=== PATIENT | female | born 1945 | race Caucasian/White ===

== ENCOUNTER 2017-12-17 13:27 | Emergency (ER) | payer MEDICARE, OTHER ==
[~2017-12-17] VITALS: Ht 162.6 cm; Wt 70.0 kg
[2017-12-17 13:35] VITALS: BP 137/63; PULSE 90; RESP 16; TEMP 99.6; O2SAT 96
--- NOTE | 2017-12-17 14:00 | PD ---
HPI Chief Complaint: Fall Time Seen by Provider: 13:54 Travel History International Travel<30 days: No Contact w/Intl Traveler<30days: No Traveled to known affect area: No History of Present Illness HPI 72-year-old female presents to the emergency department for evaluation of right- sided facial swelling. Patient was in her horse barn yesterday when her horse bumped her and she fell to the ground striking the right side of her face. Patient reports pain, moderate in severity. No visual disturbances except for swollen eye and difficulty opening her eye. She did not lose consciousness. She is not on any anticoagulation therapy. She has no other symptoms to report. [facility] Past Medical History Medical History: Denies Significant Hx Social History Alcohol Use: No Tobacco Use: No Substance Use: No Allergies-Medications (Allergen,Severity, Reaction): Coded Allergies: Opioids - Morphine Analogues (Verified Adverse Reaction, Mild, NAUSEA/ VOMITING, 12/17/17) Reported Meds & Prescriptions Reported Meds & Active Scripts Active Ibuprofen 600 Mg Tab 600 Mg PO Q8H PRN Augmentin (Amoxicillin-Clavulanate) 875-125 Mg Tab 1 Tab PO BID 10 Days Reported Lexapro (Escitalopram Oxalate) 10 Mg Tab 10 Mg PO DAILY Review of Systems Except as stated in HPI: all other systems reviewed are Neg Physical Exam Narrative GENERAL: Well-nourished female patient, in no acute distress. SKIN: Focused skin assessment warm/dry. HEAD: Normocephalic. Right periorbital edema with associated ecchymosis. The lids are swollen shut. EYES: Pupils equal and round. No scleral icterus. Large subconjunctival hematoma of the right lateral eye. EOMI. No hyphema. ENT: No nasal bleeding or discharge. Mucous membranes pink and moist. NECK: Trachea midline. No JVD. CARDIOVASCULAR: Regular rate and rhythm. No murmur appreciated. RESPIRATORY: No accessory muscle use. Clear to auscultation. Breath sounds equal bilaterally. GASTROINTESTINAL: Abdomen soft, non-tender, nondistended. Hepatic and splenic margins not palpable. MUSCULOSKELETAL: No obvious deformities. No clubbing. No cyanosis. No edema. NEUROLOGICAL: Awake and alert. No obvious cranial nerve deficits. Motor grossly within normal limits. Normal speech. PSYCHIATRIC: Appropriate mood and affect; insight and judgment normal. Data Data Last Documented VS Vital Signs Date Time Temp Pulse Resp B/P (MAP) Pulse Ox O2 Delivery O2 Flow Rate FiO2 12/17/17 13:35 99.6 90 16 137/63 (87) [address] Facial Bones W/O Iv Cont (12/17/17 ) Ct Brain W/O Iv Contrast(Rout) (12/17/17 ) Ct Cerv Spine W/O Contrast (12/17/17 ) Ed Discharge Order (12/17/17 15:54) MDM Medical Decision Making Medical Screen Exam Complete: Yes Emergency Medical Condition: Yes Medical Record Reviewed: Yes Differential Diagnosis Facial fracture versus contusion versus dislocation versus entrapment versus intracranial hemorrhage versus minor head injury Narrative Course 72-year-old female presents to emergency department for evaluation of an injury sustained when she was knocked to the ground by her horse, striking her face. EOMI. Patient does have facial swelling and periorbital swelling of the right eye. Last Impressions Maxillofacial CT 12/17/17 0000 Signed Impressions: Service Date/Time: Sunday, December 17, 2017 14:48 - CONCLUSION: 1. Fractures of the right lateral orbital wall, right zygomatic arch, maxillary sinus and right orbital floor but without evidence for entrapment. Right globe is intact. There is air in soft tissue swelling in the right periorbital region. Alfred Sheridan MD Head CT 12/17/17 0000 Signed Impressions: Service Date/Time: Sunday, December 17, 2017 14:48 - CONCLUSION: 1. No acute intracranial abnormality is identified. 2. Fracture of the superior orbital rim on the right. Moises Stapleton MD Cervical Spine CT 12/17/17 0000 Signed Impressions: Service Date/Time: Sunday, December 17, 2017 14:48 - CONCLUSION: 1. No acute fracture. Grade 1 anterolisthesis of C4 on C5 likely degenerative. No prevertebral soft tissue swelling. Alfred Sheridan MD Findings are discussed with Dr. Hou, craniofacial surgeon press operator carbon blocks. He recommends oral antibiotics, sinus precautions, and follow-up in his office. Plan is discussed with the patient who is in agreement and will return immediately with any acute worsening of symptoms. Diagnosis Primary Impression: Orbital fracture Qualified Codes: S02.80XA - Fracture of other specified skull and facial bones , unspecified side, initial encounter for closed fracture Additional Impressions: Zygomatic arch fracture Qualified Codes: S02.40EA - Zygomatic fracture, right side, initial encounter for closed fracture Maxillary sinus fracture Qualified Codes: S02.401A - Maxillary fracture, unspecified side, initial encounter for closed fracture Referrals: Guero Walker DDS Patient Instructions: Facial Fracture (ED), General Instructions Additional Instructions: Ice to the affected area Sinus precautions: Open-mouth sneezing, no blowing your nose, no sucking through a straw Follow-up with a primary care provider Follow-up with Dr. Hou. Contact his office and schedule a follow-up appointment for next week. Return immediately with any acute worsening of symptoms Med/Other Pt SpecificInfo: Prescription(s) given Scripts Ibuprofen (Ibuprofen) 600 Mg Tab 600 MG PO Q8H Y for PAIN, #30 TAB 0 Refills Prov: Christiane Ho 12/17/17 Amoxicillin-Clavulanate (Augmentin) 875-125 Mg Tab 1 TAB PO BID for Infection for 10 Days, #20 TAB 0 Refills Prov: Christiane Ho 12/17/17 Disposition: 01 DISCHARGE HOME Condition: Stable Christiane Ho Dec 17, 2017 14:00
[2017-12-17] MEDS ORDERED: LEXA10TA PO (14:04)
--- NOTE | 2017-12-17 15:15 | RADRPT ---
EXAM DATE/TIME: 12/17/2017 14:48 [facility] COMPARISON: No previous studies available for comparison. INDICATIONS : Trauma. Fall. Right periorbital hematoma. RADIATION DOSE: 62.88 CTDIvol (mGy) MEDICAL HISTORY : None SURGICAL HISTORY : Hysterectomy. ENCOUNTER: Initial ACUITY: 1 day PAIN SCALE: 0/10 LOCATION: cranial TECHNIQUE: Multiple contiguous axial images were obtained of the head. Using automated exposure control and adj ustment of the mA and/or kV according to patient size, radiation dose was kept as low as reasonably a chievable to obtain optimal diagnostic quality images. DICOM format image data is available electro nically for review and comparison. FINDINGS: CEREBRUM: The ventricles are normal for age. No evidence of midline shift, mass lesion, hemorrhage or acute in farction. No extra-axial fluid collections are seen. POSTERIOR FOSSA: The cerebellum and brainstem are intact. The 4th ventricle is midline. The cerebellopontine angle i s unremarkable. EXTRACRANIAL: The visualized portion of the orbits is intact. SKULL: The skull is intact. The exam does demonstrate fracture of the superior orbital rim on the right. CT imaging of the facial bones is pending. CONCLUSION: 1. No acute intracranial abnormality is identified. 2. Fracture of the superior orbital rim on the right. Moises Stapleton MD on December 17, 2017 at 15:12 Board Certified Radiologist. This report was verified electronically.
--- NOTE | 2017-12-17 15:30 | RADRPT ---
EXAM DATE/TIME: 12/17/2017 14:48 [facility] COMPARISON: No previous studies available for comparison. INDICATIONS : Trauma. Fall. Right periorbital hematoma. RADIATION DOSE: 25.50 CTDIvol (mGy) MEDICAL HISTORY : None SURGICAL HISTORY : Hysterectomy. ENCOUNTER: Initial ACUITY: 1 day PAIN SCORE: 0/10 LOCATION: Right facial TECHNIQUE: Volumetric scanning of the facial bones was performed. Using automated exposure control and adjustme nt of the mA and/or kV according to patient size, radiation dose was kept as low as reasonably achiev able to obtain optimal diagnostic quality images. DICOM format image data is available electroniciKaaz y for review and comparison. FINDINGS: The globes are intact. There is a fracture of the right lateral orbital wall, right zygomatic arch an d anterior, posterior and medial kiser of the maxillary sinus. There is also a mildly depressed right orbital floor fracture without evidence for entrapment on CT. Recent hemorrhage in the right maxilla ry sinus. There is air in the subcutaneous tissues of the right periorbital region. No left-sided fac ial fractures are identified. CONCLUSION: 1. Fractures of the right lateral orbital wall, right zygomatic arch, maxillary sinus and right orbit al floor but without evidence for entrapment. Right globe is intact. There is air in soft tissue swel ling in the right periorbital region. Alfred Sheridan MD on December 17, 2017 at 15:25 Board Certified Radiologist. This report was verified electronically.
--- NOTE | 2017-12-17 15:34 | RADRPT ---
EXAM DATE/TIME: 12/17/2017 14:48 [facility] COMPARISON: No previous studies available for comparison. INDICATIONS : Trauma. Fall. Right periorbital hematoma. RADIATION DOSE: 25.53 CTDIvol (mGy) MEDICAL HISTORY : None SURGICAL HISTORY : Hysterectomy. ENCOUNTER: Initial ACUITY: 1 day PAIN SCALE: 0/10 LOCATION: neck TECHNIQUE: Volumetric scanning of the cervical spine was performed. Multiplanar reconstructions in the sagittal, coronal and oblique axial planes were performed. Using automated exposure control and adjustment o f the mA and/or kV according to patient size, radiation dose was kept as low as reasonably achievable to obtain optimal diagnostic quality images. DICOM format image data is available electronically f or review and comparison. FINDINGS: No acute fracture. There is a grade 1 anterolisthesis of C4 on C5. No prevertebral soft tissue swelli ng. Moderate facet arthropathy. CONCLUSION: 1. No acute fracture. Grade 1 anterolisthesis of C4 on C5 likely degenerative. No prevertebral soft t issue swelling. Alfred Sheridan MD on December 17, 2017 at 15:28 Board Certified Radiologist. This report was verified electronically.
[2017-12-17] MEDS ORDERED: AUGM875T3 PO (15:57)
[2017-12-17] MEDS ORDERED: IBUP-232 PO (15:57)
== END 2017-12-17 16:12 | disposition home or self-care (01) ==
LOC: PHEFT 13:27
DX: S02.81XA Fracture of other specified skull and facial bones, right side, initial encounter for closed fracture (principal); S02.40EA Zygomatic fracture, right side, initial encounter for closed fracture; S02.40CA Maxillary fracture, right side, initial encounter for closed fracture; W18.39XA Other fall on same level, initial encounter; Y92.71 Barn as the place of occurrence of the external cause
CPT/HCPCS: 70450; 70486; 72125; 99283